=== PATIENT | female | born 1970 | race Two or more races ===

== ENCOUNTER 2024-10-24 12:29 | Emergency (ER) | payer OTHER, SELFPAY ==
[2024-10-24] VITALS (21 sets, daily range): BP systolic 151–161; BP diastolic 62–82; PULSE 88–122; TEMP 36.4; O2SAT 97–98; BMI 29.3
--- NOTE | 2024-10-24 12:42 | ECG_ITS ---
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 Measurements Intervals [place] Rate: 111 P: 72 TX: 146 QRS: 13 QRSD: 74 T: 61 QT: 342 QTc: 407 Interpretive Statements 1120 Sinus tachycardia 3113 Cannot rule out anterior myocardial infarction, probably old 9150 abnormal ECG No previous ECG available for comparison Electronically Signed On 10-26-2024 17:18:39 EDT by KOKO WHITTAKER M.D.
--- NOTE | 2024-10-24 12:44 | ED_ITS ---
HPI HPI - General Adult General Chief complaint: Recheck/Abnormal Lab/Rx Stated complaint: HIGH GLUCOSE LEVELS Time Seen by Provider: 10/24/24 12:33 Source: patient Limitations: no limitations History of Present Illness HPI narrative: 53-year-old female presents for high blood sugars. She states they have been running high recently. Few months ago she got out of fpc and has not been eating correctly. She states she is better gotten. Her sugars have been running high and she was started on Trulicity yesterday. She has been taking her medications. She has been urinating a great deal recently and was seen at another hospital emergency department a few days ago. Related Data Home Medications ?Medication ?Instructions ?Recorded ?Confirmed albuterol sulfate 90 mcg/actuation 2 puff inhalation Q 4H PRN 10/24/24 10/24/24 aerosol inhaler shortness of breath or wheez ing amlodipine 10 mg tablet 10 mg PO DAILY 10/24/2408/15 aspirin 81 mg tablet 81 mg PO DAILY 10/24/2408/15 dulaglutide 0.75 mg/0.5 mL 0.75 mg subcut .weekly 08/1510/24/24 subcutaneous pen injector (Trulicity) famotidine 40 mg tablet 40 mg PO DAILY 10/24/2408/15 glipizide 5 mg tablet 5 mg PO DAILY 10/24/2410/24 hydralazine 25 mg tablet 25 mg PO BID 10/24/24 losartan 100 1 tab PO DAILY 10/24/2408/15 mg-hydrochlorothiazide 25 mg tablet metformin 1,000 mg tablet,extended 1,000 mg PO BID 08/1510/24/24 release 24hr (osmotic) Previous Rx's ?Medication ?Instructions ?Recorded glipizide 10 mg tablet 10 mg PO DAILY #30 tabs 08/15 Allergies Allergy/AdvReac Type Severity Reaction Status Date / Time No Known Drug Allergies Allergy Verified 10/24/24 12:36 Review of Systems ROS Narrative A ten point review of systems is negative except as noted above. PFSH PFSH Social History Little interest or pleasure in doing things: not at all Feeling down, depressed, or hopeless: not at all Exam Narrative Exam Narrative: Nurses note and vital signs reviewed and patient is not hypoxic. General: The patient appears well and in no apparent distress. Patient is resting comfortably on cart. Skin: Warm, dry, no pallor noted. There is no rash noted. Head: Normocephalic, atraumatic Eye: Normal conjunctiva, no drainage Ears, Nose, Mouth, and Throat: oral mucosa is moist. Nares patent. Cardiovascular: Regular Rate and Rhythm Respiratory: Patient is in no distress, no accessory muscle use, lungs are clear to auscultation, no wheezing, rales or rhonchi Back: non-tender GI: Soft and nontender Musculoskeletal: The patient has no evidence of calf tenderness, no pitting edema, symmetrical pulses noted bilaterally Neurological: A&O, normal speech Psychiatric: Cooperative Constitutional Vital Signs, click to edit/add: Last Vital Signs Temp 97.5 F L 10/24/24 12:36 Pulse 99 H 10/24/24 16:34 Resp 14 10/24/24 16:34 BP 161/62 H 10/24/24 16:34 Pulse Ox 98 10/24/24 16:34 O2 Del Method Nasal Cannula 10/24/24 16:34 Course Vital Signs Vital signs: Vital Signs Temperature 97.5 F L 10/24/24 12:36 Pulse Rate 88 10/24/24 12:36 Respiratory Rate 18 10/24/24 12:36 Blood Pressure 151/82 H 10/24/24 12:36 Pulse Oximetry 97 10/24/24 12:36 Oxygen Delivery Method Room Air 10/24/24 12:36 Temperature 97.5 F L 10/24/24 12:36 Pulse Rate 99 H 10/24/24 16:34 Respiratory Rate 14 10/24/24 16:34 Blood Pressure 161/62 H 10/24/24 16:34 Pulse Oximetry 98 10/24/24 16:34 Oxygen Delivery Method Nasal Cannula 10/24/24 16:34 Medical Decision Making MDM Narrative Medical decision making narrative: The patient presented with elevated blood sugar. Her labs are appropriate. WBC is 7.3, sodium is 138, and her potassium is 4.1. BUN is normal at 15, creatinine is mildly elevated at 1.34. She was given IV fluids and IV insulin and her sugar came down appropriately. She does not require admission to the hospital. I discussed diet with her. We will also increase her glipizide from 5 mg a day to 10 mg and a prescription was sent for her as well as a prescription for Zofran. Treatment diagnosis and follow-up were discussed with the patient and her family. Differential Diagnosis Differential Diagnosis: Hyperglycemia, dehydration, acute kidney injury, poor diet Lab Data Lab results reviewed: Yes I reviewed the patient's lab results Labs: Lab Results 10/24/24 10/24/24 10/24/24 Range/Units 12:40 12:45 14:28 WBC 7.3 (4.0-11.0) 10^3/uL RBC 4.96 (4.20-5.40) 10^6/uL Hgb 15.1 (12.0-16.0) g/dL Hct 45.4 (36.0-48.0) % MCV 91.5 (81.0-99.0) fL MCH 30.4 (26.7-34.0) pg MCHC 33.3 (29.9-35.2) g/dL RDW 14.1 (11.0-15.0) % Plt Count 164 (150-450) 10^3/uL MPV 12.3 (9.5-13.5) fL Neut % (Auto) 65.1 (43.0-75.0) % Lymph % (Auto) 22.6 (20.5-60.0) % Loving % (Auto) 6.3 (1.7-12.0) % Eos % (Auto) 4.6 (0.9-7.0) % Baso % (Auto) 1.0 (0.2-2.0) % Neut # (Auto) 4.8 (1.4-6.5) 10^3/uL Lymph # (Auto) 1.7 (1.2-3.8) 10^3/uL Loving # (Auto) 0.5 (0.3-0.8) 10^3/uL Eos # (Auto) 0.3 (0.0-0.7) 10^3/uL Baso # (Auto) 0.1 (0.0-0.1) 10^3/uL Abs Immat Gran (auto) 0.03 (0.00-0.03) 10^3/uL Imm/Tot Granulo (auto) 0.4 (0.0-0.5) % VBG pH 7.401 (7.330-7.430) VBG pCO2 45.5 (40.0-52.0) mmHg Sodium 138 (136-145) mmol/L Potassium 4.1 (3.5-5.1) mmol/L Chloride 100 (98-107) mmol/L Carbon Dioxide 28.2 (21.0-32.0) mmol/L Anion Gap 13.9 BUN 15.0 (7.0-18.0) mg/dL Creatinine 1.34 H (0.55-1.02) mg/dL Est GFR ( Amer) 50 L (>=60 mL/min/1.73m^2) Est GFR (Non-Af Amer) 42 L (>=60 mL/min/1.73m^2) BUN/Creatinine Ratio 11.2 Glucose 402 H (74-106) mg/dL Calcium 9.8 (8.5-10.1) mg/dL Urine Color (YELLOW) Urine Clarity (CLEAR) Urine pH (5.0-9.0) Ur Specific [place] (1.005-1.025) Urine Protein (NEG/TRACE) mg/dL Urine Glucose (UA) (NEGATIVE) mg/dL Urine Ketones (NEGATIVE) mg/dL Urine Occult Blood (NEGATIVE) Urine Nitrite (NEGATIVE) Urine Bilirubin (NEGATIVE) Urine Urobilinogen (0.2-1.0) EU/dL Ur Leukocyte Esterase (NEGATIVE) Urine RBC (0-2) #/HPF Urine WBC (NONE SEEN) #/HPF Ur Squamous Epith Cells (NONE/RARE) #/LPF Urine Crystals (None Seen) #/HPF Amorphous Sediment Urine Bacteria (NONE SEEN) #/HPF Urine Casts (NONE SEEN) #/LPF Hyaline Casts Urine Mucus (NONE SEEN) Ur Culture Indicated? Acetone, Qual Negative (NEGATIVE) POC Glucose 384 H 259 H (74-106) mg/dL 10/24/24 10/24/24 Range/Units 15:20 15:58 WBC (4.0-11.0) 10^3/uL RBC (4.20-5.40) 10^6/uL Hgb (12.0-16.0) g/dL Hct (36.0-48.0) % MCV (81.0-99.0) fL MCH (26.7-34.0) pg MCHC (29.9-35.2) g/dL RDW (11.0-15.0) % Plt Count (150-450) 10^3/uL MPV (9.5-13.5) fL Neut % (Auto) (43.0-75.0) % Lymph % (Auto) (20.5-60.0) % Loving % (Auto) (1.7-12.0) % Eos % (Auto) (0.9-7.0) % Baso % (Auto) (0.2-2.0) % Neut # (Auto) (1.4-6.5) 10^3/uL Lymph # (Auto) (1.2-3.8) 10^3/uL Loving # (Auto) (0.3-0.8) 10^3/uL Eos # (Auto) (0.0-0.7) 10^3/uL Baso # (Auto) (0.0-0.1) 10^3/uL Abs Immat Gran (auto) (0.00-0.03) 10^3/uL Imm/Tot Granulo (auto) (0.0-0.5) % VBG pH (7.330-7.430) VBG pCO2 (40.0-52.0) mmHg Sodium (136-145) mmol/L Potassium (3.5-5.1) mmol/L Chloride (98-107) mmol/L Carbon Dioxide (21.0-32.0) mmol/L Anion Gap BUN (7.0-18.0) mg/dL Creatinine (0.55-1.02) mg/dL Est GFR ( Amer) (>=60 mL/min/1.73m^2) Est GFR (Non-Af Amer) (>=60 mL/min/1.73m^2) BUN/Creatinine Ratio Glucose (74-106) mg/dL Calcium (8.5-10.1) mg/dL Urine Color Lt. yellow (YELLOW) Urine Clarity Clear (CLEAR) Urine pH 6.0 (5.0-9.0) Ur Specific [place] 1.025 (1.005-1.025) Urine Protein 30 A (NEG/TRACE) mg/dL Urine Glucose (UA) >=1000 A (NEGATIVE) mg/dL Urine Ketones Negative (NEGATIVE) mg/dL Urine Occult Blood Negative (NEGATIVE) Urine Nitrite Negative (NEGATIVE) Urine Bilirubin Negative (NEGATIVE) Urine Urobilinogen 0.2 (0.2-1.0) EU/dL Ur Leukocyte Esterase Trace A (NEGATIVE) Urine RBC 0-2 (0-2) #/HPF Urine WBC 2-5 A (NONE SEEN) #/HPF Ur Squamous Epith Cells Few A (NONE/RARE) #/LPF Urine Crystals Seen A (None Seen) #/HPF Amorphous Sediment Rare Urine Bacteria Trace A (NONE SEEN) #/HPF Urine Casts Seen A (NONE SEEN) #/LPF Hyaline Casts Rare Urine Mucus None seen (NONE SEEN) Ur Culture Indicated? No Acetone, Qual (NEGATIVE) POC Glucose 256 H (74-106) mg/dL ECG Data Attestation: I personally reviewed and interpreted this ECG as follows: (EKG on my interpretation shows sinus rhythm with a rate of 111) Critical Care Time Critical Care Time Critical Care Time: Yes Total Critical Care Time: 35 Attestation: Due to the high probability of sudden and clinically significant deterioration in the patient's condition he/she required the highest level of my preparedness to intervene urgently I provided critical care time including documentation time, medication orders and management, reevaluation, vital sign assessment, ordering and reviewing of lab tests, ordering and reviewing of x-ray studies, and admission orders. Aggregate critical care time is 35 minutes including only time during which I was engaged in work directly related to his/her care and did not include time spent treating other patients simultaneously. Discharge Plan Discharge Chief Complaint: Recheck/Abnormal Lab/Rx Clinical Impression: Hyperglycemia due to diabetes mellitus Patient Disposition: Home, Self-Care Time of Disposition Decision: 16:15 Condition: Good Mode of Transportation: Private Vehicle Prescriptions / Home Meds: New glipizide 10 mg tablet 10 mg PO DAILY Qty: 30 0RF No Action albuterol sulfate 90 mcg/actuation HFA aerosol inhaler 2 puff INHALATION Q4H PRN (Reason: shortness of breath or wheezing) amlodipine 10 mg tablet 10 mg PO DAILY Trulicity 0.75 mg/0.5 mL pen injector 0.75 mg SUBCUT .weekly famotidine 40 mg tablet 40 mg PO DAILY hydralazine 25 mg tablet 25 mg PO BID losartan-hydrochlorothiazide 100-25 mg tablet 1 tab PO DAILY metformin 1,000 mg tablet extended release 24hr 1,000 mg PO BID glipizide 5 mg tablet 5 mg PO DAILY aspirin 81 mg tablet 81 mg PO DAILY Print Language: Ug[place] Instructions: Meal Planning with Diabetes Exchanges (DC), Diabetic Hyperglycemia (ED), Type 2 Diabetes Management for Adults (ED) Additional Instructions: Increase glipizide to 10 mg a day. Call your doctor on Sunday for follow-up appointment. Referrals: [facility] [Primary Care Provider, Unknown] - 1 week Discharge Date/Time: 10/24/24 16:37
[2024-10-24 12:57] LABS: PCO2 VBG 45.5 mmHg (40.0-52.0); pH VBG 7.401 (7.330-7.430)
[2024-10-24 12:59] LABS: Hematocrit 45.4 % (36.0-48.0); Hemoglobin 15.1 g/dL (12.0-16.0); Immature Granulocytes Abs Auto 0.03 10^3/uL (0.00-0.03); Immature Granulocytes Pct Auto 0.4 % (0.0-0.5); Lymphocytes Absolute Auto 1.7 10^3/uL (1.2-3.8); Mean Corpuscular HGB Conc 33.3 g/dL (29.9-35.2); Mean Corpuscular Hemoglobin 30.4 pg (26.7-34.0); Mean Corpuscular Volume 91.5 fL (81.0-99.0); Platelet Count 164 10^3/uL (150-450); Red Blood Count 4.96 10^6/uL (4.20-5.40); White Blood Count 7.3 10^3/uL (4.0-11.0)
[2024-10-24] MEDS: 0.9 % SODIUM CHLORIDE 1,000 ML 1000 ML IV ×2 (13:03→14:10)
[2024-10-24 13:08] LABS: Anion Gap 13.9; Blood Urea Nitrogen 15.0 mg/dL (7.0-18.0); Calcium 9.8 mg/dL (8.5-10.1); Carbon Dioxide 28.2 mmol/L (21.0-32.0); Chloride 100 mmol/L (98-107); Estimated GFR (African America 50 (>=60 mL/min/1.73m^2); Estimated GFR (Non-African Ame 42 (>=60 mL/min/1.73m^2); Glucose 402 mg/dL (74-106); Potassium 4.1 mmol/L (3.5-5.1); Sodium 138 mmol/L (136-145)
[2024-10-24] MEDS: INSULIN REGULAR, HUMAN (100 UNIT/ML) 10 ML MDV 10 UNIT IV (13:32)
[2024-10-24 15:29] LABS: Glucose Urine UA >=1000 mg/dL (NEGATIVE)
[2024-10-24 15:38] LABS: Cast Seen? SEEN #/LPF (NONE SEEN); Crystals Seen? Seen #/HPF (None Seen)
[2024-10-24 15:39] LABS: Urine Culture Indicated NO
== END 2024-10-24 16:37 | disposition home or self-care (01) ==
PROVIDERS: Emergency Provider Emergency Medicine
DX: E11.65 Type 2 diabetes mellitus with hyperglycemia (principal); Z79.85 Long-term (current) use of injectable non-insulin antidiabetic drugs; Z79.84 Long term (current) use of oral hypoglycemic drugs
CPT/HCPCS: 36415; 80048; 81001; 82009; 82800; 82948; 85025; 93005; 96361; 96374; 99284; J1817; J2405